=== PATIENT | female | born 1960 | race Caucasian/White ===

== ENCOUNTER 2021-03-28 22:12 | Inpatient (IN) | payer OTHER ==
[~2021-03-28] VITALS: Ht 167.6 cm; Wt 106.1 kg
[2021-03-29] VITALS (7 sets, daily range): BP systolic 111–155; BP diastolic 45–82; PULSE 72–91; TEMP 97.8–98.6
[2021-03-29] MEDS ORDERED: HCTZ12.5TAB PO (00:38)
[2021-03-29] MEDS ORDERED: HCTZ 25MG TAB25 MG PO (00:38)
[2021-03-29] MEDS ORDERED: LEVOXYL0.125 MG PO (00:39)
[2021-03-29] MEDS ORDERED: ZOCOR 10MG10 MG PO (00:52)
[2021-03-29] MEDS ORDERED: VITAMIN C500 MG PO (00:53)
[2021-03-29] MEDS ORDERED: MASON NATURAL2000 IU PO (00:53)
[2021-03-29] MEDS ORDERED: PRILOSEC 20MG20 MG PO (00:53)
[2021-03-29 03:57] LABS: ARTERIAL BLD GAS O2 SATURATION 91.6 % (92-100); ARTERIAL BLD GAS TCO2 CT 27.3; ARTERIAL BLOOD GAS HCO3 26.1 meq/L (22-26); ARTERIAL BLOOD GAS PO2 60.4 mmHg (80-100); ARTERIAL BLOOD GAS pH 7.44 (7.35-7.45)
--- NOTE | 2021-03-29 04:55 | NUR ---
PATIENT ARRIVED TO ROOM 306 VIA EMS FROM [facility] LAST EVENING. PATIENT ABLE TO AMBULATE INDEPENDENTLY TO THE BED. PATIENT WAS ON 3 L NC UPON ARRIVAL. SHE IS NOW ON 6L HF NC AND O2 IS 94% PER RT REQUEST DUE TO THE ABG RESULTS. V/S SHAVE BEEN STABLE SINCE ARRIVING. PATIENT IS ALERT AND ORIETED X'S 4 AND DENIES PAIN. PATIENT REPORTED TO THIS NURSE THAT EMS TOLD HER THAT HER COULD COME INTO THE HOSPITAL TO VISIT HER. I INFORMED THE PATIENT THAT INFORMATION WAS INCORRECT. PATIENT VERBALIZED UNDERSTANDING THAT HER WAS NOT ALLOWED TO COME INTO THE HOSPITAL DUE TO HER BEING COVID POSITIVE. PRN MANJINDERITUSSIN ADMINISTERED X'S 2 DUE TO COUGHING. NO NEW CONCERNS NOTED OR VERBALIZED BY PATIENT SINCE ARRIVING.
[2021-03-29 06:37] LABS: HEMATOCRIT 37.3 % (37.0-47.0); HEMOGLOBIN 12.2 g/dl (12.5-16.0); MEAN CELL VOLUME 85 fl (80.0-100.0); MEAN CORPUSCULAR HEMOGLOBIN 28 pg (27.0-31.0); MEAN CORPUSCULAR HGB CONC 33 g/dl (33.0-37.0); MEAN PLATELET VOLUME 10.7 fl (7.4-10.4); PLATELET COUNT 353 K/mm3 (130-400); REDCELL DISTRIBUTION WIDTH-CV 13.1 % (11.5-14.5)
[2021-03-29 06:51] LABS: CALCIUM 8.3 mg/dL (8.4-10.2); CREATININE, serum 0.63 (0.52-1.25); POTASSIUM 3.6 mmol/L (3.4-5.0)
[2021-03-29 08:03] LABS: BAND 5 % (0-10); HYPOCHROMIA 1+; LYMPHOCYTE 9 % (20.0-51.0); NEUTROPHILS 84 % (42.0-75.2); PLATELET ESTIMATE NORMAL (NORMAL)
--- NOTE | 2021-03-29 08:31 | NUR ---
Pt sleeping upon entry, easily awakened. No C/O pain at this time. Shift assessments complete, left Pt call light in reach, bed in lowest position.
--- NOTE | 2021-03-29 18:20 | NUR ---
Pt resting in the room, no issues noted, on 6 LPM high flow nasal cannula and able to maintain good saturations. Pt has noted non-pitting edema in her lower extremities, called and received order for compression stockings. Pt ambulatory in the room.
--- NOTE | 2021-03-29 22:19 | NUR ---
Patient sitting up in bed upon enter the room. Shift assessment completed. Patient A/O x4. Patient denies any pain or discomfort. Denies SOB, N/V, headache or dizziness. Patient currently on 6L HIgh flow oxygen via NC. Non-productive moist cough noted. PRN Robitussin given at 20:24 pm for cough. All scheduled meds given per JAN. Call light within reach. Patient denies any needs at this time.
[2021-03-30 02:57] VITALS: BP 132/72; PULSE 64; TEMP 98.1
--- NOTE | 2021-03-30 06:04 | NUR ---
Patient remains on 6L oxygen via high flow NC over the night. Oxygen saturation >90 % throughout the night. No acute respiratory distress noted. Call light within reach. Will give report to day shift nurse.
--- NOTE | 2021-03-30 07:54 | NUR ---
SPO2 ON 5 LPM NC 88% INCREASED TO 7 LPM HFNC 91% RN NOTIFIED
--- NOTE | 2021-03-30 09:30 | NUR ---
Shift assessment complete. Pt reports getting little sleep over night and would like to rest today. A&Ox4. Heart RRR. Lungs w/coarse crackles heard over all salazar. Breathing relaxed and unlabored. Reports some SOA w/exertion but feels improvement overall. Dry cough noted w/deep breaths. Sats 96% on 7 lpm HFNC, titrated down to 6 lpm w/ sats remaining 94-95%. Denies pain or dizziness. Call light in reach.
[2021-03-30 09:42] VITALS: BP 142/82; PULSE 64; TEMP 98.5
[2021-03-30 11:24] LABS: BASO % 0.2 % (0.0-2.0); GRAN # 10.4 (1.4-6.5); GRAN % 86.5 % (42.2-75.2); LYMPH # 0.9 (1.2-3.4); LYMPH % 7.7 % (20.0-51.0); MEAN CELL VOLUME 84 fl (80.0-100.0); MEAN CORPUSCULAR HEMOGLOBIN 28 pg (27.0-31.0); MEAN CORPUSCULAR HGB CONC 33 g/dl (33.0-37.0); MEAN PLATELET VOLUME 10.3 fl (7.4-10.4); MONO # 0.6 (0.1-0.6); MONO % 5.1 % (1.7-9.3); PLATELET COUNT 457 K/mm3 (130-400); RED BLOOD COUNT 4.63 M/mm3 (4.10-5.30); REDCELL DISTRIBUTION WIDTH-CV 13.3 % (11.5-14.5)
[2021-03-30 11:33] LABS: ALBUMIN 3.5 gm/dL (3.5-5.0); BILIRUBIN,TOTAL 0.2 mg/dL (0.0-1.0); CALCIUM 8.7 mg/dL (8.4-10.2); CREATININE, serum 0.7 (0.52-1.25); POTASSIUM 3.5 mmol/L (3.4-5.0); TOTAL PROTEIN 6.7 gm/dL (6.4-8.2)
[2021-03-30 11:59] VITALS: BP 148/72; PULSE 75; TEMP 98
--- NOTE | 2021-03-30 12:00 | NUR ---
Pt sitting up in bed eating lunch. Sats 95-96% on 6 lpm HFNC. Titrated down to 4 lpm and remained w/pt for 5 minutes with sats not going below 94%.
--- NOTE | 2021-03-30 13:27 | NUR ---
The patient is COVID positive. SW contacted the patient's room phone to complete intake. The patient lives in [place] with her , Devyn (ph#[phone]). She reports independence with ADLs and does not have any DME. The patient's primary care provider is Ms. Ida Coleman at [facility] and she receives her medications on [address]. The patient does not have a DPOA-HC, but she states that she has a General DPOA. She states that the General DPOA may have cover medical as well. She states that she designated her . The patient plans to return home with her upon discharge. The patient is currently on 5 liters of oxygen. SW to continue to monitor. *Discharge plan: home with *
[2021-03-30 16:25] VITALS: BP 126/51; PULSE 64; TEMP 98.6
--- NOTE | 2021-03-30 18:36 | NUR ---
Pt reports no SOA walking around room on 3 lpm O2. Titrated down to room air w/sats remaining at 95% for several minutes. Dropped as low as 92% w/coughing fit w/immediate increase back to 95%.
--- NOTE | 2021-03-30 21:22 | NUR ---
Patient sitting up in bed upon enter the room. Patient reports feeling much better today. Patient currently on room air. SPO2 93% on RA at 1930. Moist cough noted. PRN Robitussin given per JAN. All scheduled meds given per JAN. Call light within reach. Patient denies any needs at this time.
[2021-03-30 21:36] VITALS: BP 149/65; PULSE 70; TEMP 98.2
[2021-03-31] VITALS (7 sets, daily range): BP systolic 136–159; BP diastolic 70–82; PULSE 59–89; TEMP 97.9–98.3
--- NOTE | 2021-03-31 06:02 | NUR ---
Patient slept good throughout the night. SPO2 remained above 93% on RA throughout the night. No acute respiratory distress noted. Call light within reach. Will give report to day shift nurse.
--- NOTE | 2021-03-31 09:00 | NUR ---
Assessment completed, alert/oriented, vital signs stable/afebrile, denies pain, report continued dry cough / using Robitussin PRN, lungs dminished, she is still requiring 3L. o2 which is improved from the 6L. she required yesterday, she is eating and drinking without issues, she is resting quietly in her room and denies other needs at this time
[2021-04-01 03:49] VITALS: BP 142/69; PULSE 62; TEMP 97.6
--- NOTE | 2021-04-01 05:08 | NUR ---
PATIENT RESTED QUIETLY IN BED THROUGHOUT THE NIGHT. NO NEW ISSUES NOTED OR REPORTED BY PATIENT. PT CONTINUES ON 3L HF NC.
[2021-04-01 06:51] LABS: HEMATOCRIT 39.7 % (37.0-47.0); HEMOGLOBIN 13.3 g/dl (12.5-16.0); MEAN CELL VOLUME 84 fl (80.0-100.0); MEAN CORPUSCULAR HEMOGLOBIN 28 pg (27.0-31.0); MEAN CORPUSCULAR HGB CONC 34 g/dl (33.0-37.0); MEAN PLATELET VOLUME 10.4 fl (7.4-10.4); PLATELET COUNT 530 K/mm3 (130-400); RED BLOOD COUNT 4.74 M/mm3 (4.10-5.30); REDCELL DISTRIBUTION WIDTH-CV 12.9 % (11.5-14.5)
[2021-04-01 07:03] LABS: CALCIUM 8.7 mg/dL (8.4-10.2); CREATININE, serum 0.68 (0.52-1.25); POTASSIUM 3.7 mmol/L (3.4-5.0)
[2021-04-01 08:03] VITALS: BP 139/84; PULSE 59; TEMP 98
[2021-04-01 09:04] LABS: LYMPHOCYTE 8 % (20.0-51.0); NEUTROPHILS 86 % (42.0-75.2)
[2021-04-01 09:05] LABS: PLATELET ESTIMATE INCREASED (NORMAL)
--- NOTE | 2021-04-01 09:30 | NUR ---
PT PLEASANT AOX4, HAS ACTIVE COUGH W/O SPUTUM VISUALIZED, BREAKFAST, BRIEFS, INCONTINENCE PADS, AND WATER BROUGHT IN FOR PT. PT ON 3L OXYGEN, COARSE LUNG SOUNDS IN THE BASES, PT DENIES SOB WITH OR W/O ACTIVITY, DENIES PAIN EVEN WITH COUGH, PT REPORTS SLIGHT INCONTINENCE OF BLADDER WITH COUGH. PT WEARING GLASSES, NO OTHER NEEDS AT THIS TIME.
[2021-04-01 12:47] LABS: ALBUMIN 3.1 gm/dL (3.5-5.0); TOTAL PROTEIN 6.2 gm/dL (6.4-8.2)
[2021-04-01 12:50] VITALS: BP 146/88; PULSE 63; TEMP 97.7
[2021-04-01 13:23] LABS: BILIRUBIN UNCONJUGATED 0.1 mg/dL (0.0-1.1); BILIRUBIN,DIRECT 0.1 mg/dL (0.0-0.4); BILIRUBIN,TOTAL 0.2 mg/dL (0.0-1.0)
--- NOTE | 2021-04-01 14:07 | NUR ---
PT AT REST IN BED. O2 TURNED OFF FOR APPROX 5 MINUTES. SPO2 86% O2 BACK ON @ 3 LPM SPO2 91% O2 LEFT ON @ 3 LPM NC.
[2021-04-01 16:22] VITALS: BP 160/87; PULSE 65; TEMP 97.8
--- NOTE | 2021-04-01 18:36 | NUR ---
RFA IV SITE SLIGHTLY RED, REMDESIVIR ADMINISTRATED, ALL MEDS GIVEN, DENIES PAIN/DISCOMFORT, UNEVENTFUL SHIFT OVERALL, CALL LIGHT WITHIN REACH, PT INDEPENDENT IN ROOM.
[2021-04-01 20:48] VITALS: BP 157/79; PULSE 66; TEMP 97.8
--- NOTE | 2021-04-01 22:25 | NUR ---
ALERT AND OX4. NO C/O PAIN, DIZZY OR LIGHTHEADED. SOME SOA WHEN AMBULATING. 3 L N/C. RT AC FLUSHED, ROCEPHIN GIVEN PER ORDER. LOVENOX FOR VTE. POC DISCUSSED. VSS. CALL LIGHT WI REACH. NEEDS MET.
[2021-04-02 00:47] VITALS: BP 160/85; PULSE 56; TEMP 98
[2021-04-02 05:05] VITALS: BP 156/90; PULSE 53; TEMP 98.1
--- NOTE | 2021-04-02 05:20 | NUR ---
RESTED THROUGH THE NIGHT WITHOUT INCIDENT. NEEDS MET.
[2021-04-02 06:49] LABS: HEMATOCRIT 42.4 % (37.0-47.0); HEMOGLOBIN 14.1 g/dl (12.5-16.0); MEAN CELL VOLUME 84 fl (80.0-100.0); MEAN CORPUSCULAR HEMOGLOBIN 28 pg (27.0-31.0); MEAN CORPUSCULAR HGB CONC 33 g/dl (33.0-37.0); MEAN PLATELET VOLUME 10.4 fl (7.4-10.4); PLATELET COUNT 525 K/mm3 (130-400); RED BLOOD COUNT 5.08 M/mm3 (4.10-5.30); REDCELL DISTRIBUTION WIDTH-CV 12.8 % (11.5-14.5)
[2021-04-02 07:03] LABS: CALCIUM 8.9 mg/dL (8.4-10.2); CREATININE, serum 0.7 (0.52-1.25); POTASSIUM 4.3 mmol/L (3.4-5.0)
[2021-04-02 07:44] LABS: BAND 2 % (0-10); LYMPHOCYTE 15 % (20.0-51.0); NEUTROPHILS 78 % (42.0-75.2); PLATELET ESTIMATE INCREASED (NORMAL)
[2021-04-02 08:08] VITALS: BP 153/83; PULSE 52; TEMP 98.1
--- NOTE | 2021-04-02 08:50 | NUR ---
PT PLEASANT, AOX4, DENIES PAIN/DISCOMFORT, REPORTS WANTING SHOWER LATER IN THE DAY, CRACKLES AUSCULTATED IN BASES, ASSESSMENT PERFORMED, VITALS REVIEWED, MEDICATIONS GIVEN, GRAPE JUICE BROUGHT IN FOR PT, PT STILL ON 3L NC. PT ATE 100% OF BREAKFAST, NO OTHER NEEDS AT THIS TIME.
[2021-04-02 11:56] VITALS: BP 145/77; PULSE 60; TEMP 97.5
[2021-04-02] MEDS ORDERED: PROAIR HFA0.09 MG/AC IH (12:51)
[2021-04-02] MEDS ORDERED: DECADRON6 MG PO (12:52)
[2021-04-02] MEDS ORDERED: OXYGEN NASAL.CANN (12:54)
--- NOTE | 2021-04-02 13:28 | NUR ---
The patient's PA notified [facility] that the patient qualified for oxygen, 3 liters. [facility] contacted the patient to inform of her qualifying and of the different DME companies. The patient chose [employer]. CORDELIA contacted and faxed the oxygen order to Brigette at [employer]. Awaiting delivery of oxygen.
--- NOTE | 2021-04-02 15:54 | NUR ---
Cheko, with [employer], delivered a portable oxygen tank to the patient's room. The patient's RN was made aware of this. The patient is to discharge back home with her today, 04/02. No additional needs at this time.
--- NOTE | 2021-04-02 16:29 | NUR ---
pt escorted out via wheelchair with pt belongings, iv removed, showed her how to use home oxygen tank, no other needs.
== END 2021-04-02 16:20 | disposition home or self-care (01) | DRG 177 ==
LOC: MEDICAL 22:12
PROVIDERS: Internal Medicine; Student in an Organized Health Care Education/Training Program; ADMIT Hospitalist
PROC: XW033E5 Introduction of Remdesivir Anti-infective into Peripheral Vein, Percutaneous Approach, New Technology Group 5 (ICD-10-PCS; principal; 2021-03-30)
DX: U07.1 COVID-19 (principal); J96.01 Acute respiratory failure with hypoxia; E03.9 Hypothyroidism, unspecified; E78.5 Hyperlipidemia, unspecified; K21.9 Gastro-esophageal reflux disease without esophagitis; R60.9 Edema, unspecified; I10 Essential (primary) hypertension
CPT/HCPCS: 99223-AI; 99232-AI; 99233-AI; J0696; J1100; J1650; J8540

== ENCOUNTER → 2021-09-18 | Outpatient (CLI) | payer OTHER ==
[~2021-09-18] MED LIST: DECADRON6 MG PO; HCTZ 25MG TAB25 MG PO; HCTZ12.5TAB PO; LEVOXYL0.125 MG PO; MASON NATURAL2000 IU PO; OXYGEN NASAL.CANN; PRILOSEC 20MG20 MG PO; PROAIR HFA0.09 MG/AC IH; VITAMIN C500 MG PO; ZOCOR 10MG10 MG PO
== END ==
LOC: COL.VAS 11:50 → COL.PUL 13:00
DX: R06.02 Shortness of breath (principal)

== ENCOUNTER → 2021-12-11 | Outpatient (CLI) | payer OTHER | LOC: COL.PUL 09-29 13:00 | DX: R06.02 Shortness of breath (principal) | CPT/HCPCS: J7674 ==